=== PATIENT | female | born 1970 | race Caucasian/White ===

== ENCOUNTER 2017-11-09 11:14 | Observation (INO) | payer BC ==
--- NOTE | 2017-11-09 12:21 | RAD ---
EXAM DESCRIPTION: Chest,2 Views CLINICAL HISTORY: atypical chest and abd pain COMPARISON: August 15, 2013 FINDINGS: Cardiac silhouette is within normal limits. EKG leads project over the chest. There is no focal parenchymal or pleural disease. There is no acute osseous process visualized. IMPRESSION: No evidence of acute cardiopulmonary disease. Electronically signed by: Ilya Mcneil MD 11/09/2017 12:19 PM CDT
--- NOTE | 2017-11-09 12:24 | RAD ---
EXAM DESCRIPTION: Abdomen Flat Upright CLINICAL HISTORY: atypical chest and abd pain COMPARISON: None FINDINGS: Supine and upright images of the abdomen were submitted . Surgical clips in the right upper quadrant compatible with prior cholecystectomy. Surgical clips also noted at the level of the pelvis. Calcifications projecting at the level of the iliac crest may represent injection granulomas. Moderate amount of stools within the colon. There is no free air in the abdomen. There is no evidence of bowel obstruction. IMPRESSION: No acute abnormalities. Electronically signed by: Ilya Mcneil MD 11/09/2017 12:22 PM CDT
[2017-11-09] MEDS ORDERED: ASPIRIN TABLET 325 MG TAB PO ONE (12:27)
[2017-11-09] MEDS ORDERED: ALUM & MAG HYDROX-SIMETHICONE 30 ML, LIDOCAINE VISCOUS 2% 15 ML PO ONE ×2 (12:27)
[2017-11-09] MEDS ORDERED: ALUM & MAG HYDROX-SIMETHICONE 30 ML UD ONE (12:31)
[2017-11-09] MEDS ORDERED: LIDOCAINE HCL 2% (MOUTH-THROAT) 15 ML UD ONE (12:31)
[2017-11-09] MEDS ORDERED: SUCRALFATE 1 GM/10 ML 1 GM UD PO ONE (14:37)
[2017-11-09] MEDS ORDERED: PANTOPRAZOLE SODIUM TAB 40 MG PO ONE (14:37)
[2017-11-09] MEDS ORDERED: ENOXAPARIN SODIUM 80 MG/0.8 ML SYG SUBCU ONE (16:02)
--- NOTE | 2017-11-09 16:06 | ED.PDOC ---
History of Present Illness - General Chief Complaint: Respiratory Problem Stated Complaint: trouble breathing,chest tightness Time Seen by Provider: 11/09/17 11:18 Source: patient Exam Limitations: no limitations - History of Present Illness Initial Comments: the patient is a 47-year-old female presenting to the emergency room secondary to a burning substernal chest pain that started after she woke up this morning around 9:30 in the morning. No history of any cardiac disease. He has been fairly constantly present but does get a little worse at times. She has had some mild nausea but no vomiting. She does have some epigastric discomfort this morning that is new as well. She does have a history of lupus and possible scleroderma. She takes Plaquenil for this. She also has a history of thyroid disease. No palpitations. No shortness of breath. She does have a history of fibromyalgia. No syncope or near syncope. Chest discomfort was present 2-3 hours prior to arrival here. No significant previous episodes. She is already apparently scheduled to see a pizza driver in December for some of her reflux symptoms in the past. Timing/Duration: 1-3 hours Severity: moderate Improving Factors: nothing Worsening Factors: nothing Associated Symptoms: chest pain, loss of appetite, nausea/vomiting Allergies/Adverse Reactions: Allergies NO KNOWN ALLERGY Allergy (Verified 08/15/13 17:00) Home Medications: Ambulatory Orders Hydroxychloroquine Sulfate [Hydroxychloroquine Sulfat] 200 mg PO DAILY 11/09/17 Levothyroxine Sodium [Synthroid] 100 mcg PO DAILY 11/09/17 Lisinopril 10 mg PO DAILY 11/09/17 Pantoprazole Sodium 20 mg PO DAILY 11/09/17 Review of Systems - Review of Systems Constitutional: States: no symptoms reported EENTM: States: no symptoms reported Respiratory: States: no symptoms reported Cardiology: States: chest pain Gastrointestinal/Abdominal: States: see HPI Genitourinary: States: no symptoms reported Musculoskeletal: States: no symptoms reported Skin: States: no symptoms reported Neurological: States: anxiety Endocrine: States: no symptoms reported All other Systems: No Change from Baseline Past Medical History (General) - Patient Medical History Hx Stroke: No Hx Congestive Heart Failure: No Hx Hypertension: Yes Hx Diabetes: No - Vaccination History Hx Influenza Vaccination: No - Social History Hx Tobacco Use: Yes Family Medical History - Family History Mother Family History: Unknown Living Status: Unknown Physical Exam - Physical Exam General Appearance: Alert, Anxious, No apparent distress Eye Exam: bilateral normal Ears, Nose, Throat: hearing grossly normal, normal ENT inspection, normal pharynx, other - the patient does have some lip changes consistent with scleroderma Neck: full range of motion, supple Respiratory: lungs clear, normal breath sounds, no respiratory distress, no accessory muscle use Cardiovascular/Chest: normal peripheral pulses, regular rate, rhythm, no edema Peripheral Pulses: radial,right: 2+, radial,left: 2+, dorsalis pedis,right: 2+, dorsalis pedis,left: 2+ Gastrointestinal/Abdominal: soft, other - epigastric discomfort to palpation but no rebound or peritoneal signs. Rectal Exam: deferred Back Exam: normal inspection, no CVA tenderness, no vertebral tenderness Extremity: normal range of motion, non-tender, normal inspection, no pedal edema , normal capillary refill Neurologic: survival equipment repairer II-XII nml as tested, alert, normal mood/affect, oriented x 3 Skin Exam: normal color Comments: Vital Signs - 24 hr 11/09/17 11/09/17 11/09/17 11:20 11:30 12:14 Temperature 97.5 F L Pulse Rate [ 78 73 75 Left Brachial] Respiratory 20 16 Rate Blood Pressure 110/73 101/73 [Left Arm] O2 Sat by Pulse 96 97 Oximetry 11/09/17 11/09/17 13:00 14:00 Temperature Pulse Rate [ 73 76 Left Brachial] Respiratory 16 16 Rate Blood Pressure 101/72 99/62 [Left Arm] O2 Sat by Pulse 97 98 Oximetry Progress - Progress Progress: 11/09/17 16:07 the patient is a 47-year-old female presenting to the emergency room secondary to epigastric and substernal pain since 9:30 this morning. Chest pain is atypical and is probably most likely related to upper stomach and esophageal dysfunction due to her scleroderma. She is however at increased risk due to autoimmune disease and the plaquenil that she takes. The first 2 sets of cardiac enzymes are negative. She has received a dose of aspirin and Lovenox. She also received GI medications of a GI cocktail, Carafate and Protonix. She is feeling better at this point. As the patient is a high-risk patient she is going to be placed inpatient for continued monitoring and the longer rule out protocol. - Results/Orders Results/Orders: 11/09/17 11:30 Telemetry .CONTINUOUS 11/09/17 11:45 EKG STAT 11/09/17 12:01 URINE CULTURE W/COLONY COUNT Stat Laboratory Results - last 24 hr 11/09/17 11/09/17 11/09/17 11:31 11:40 11:40 WBC RBC Hgb Hct MCV MCH MCHC RDW Plt Count MPV Absolute Neuts (auto) Absolute Lymphs (auto) Absolute Monos (auto) Absolute Eos (auto) Absolute Basos (auto) Neutrophils % Lymphocytes % Monocytes % Eosinophils % Basophils % PT INR PTT (SP) D-Dimer, Quantitative Sodium 138 Potassium 4.1 Chloride 106 Carbon Dioxide 27 Anion Gap 9.1 L BUN 11 Creatinine 0.65 BUN/Creatinine Ratio 16.9 Random Glucose 86 Serum Osmolality 274.4 L Lactic Acid 0.8 Calcium 8.6 Magnesium 2.1 Total Bilirubin 0.7 AST 16 ALT 18 Alkaline Phosphatase 106 Creatine Kinase 30 CK-MB (CK-2) 0.7 CK-MB (CK-2) % Not Reportable Troponin I < 0.02 B-Natriuretic Peptide 11.6 Serum Total Protein 6.9 Albumin 3.8 Globulin 3.1 Albumin/Globulin Ratio 1.2 Amylase 47 Lipase 27 TSH 2.87 Urine Color Urine Appearance Urine pH Ur Specific [place] Urine Protein Urine Glucose (UA) Urine Ketones Urine Blood Urine Nitrite Urine Bilirubin Urine Urobilinogen Ur Leukocyte Esterase Urine RBC Urine WBC Ur Epithelial Cells Urine Bacteria Urine HCG, Qual Negative 11/09/17 11/09/17 11/09/17 11:40 11:40 12:01 WBC 3.6 L RBC 3.53 L Hgb 11.5 L Hct 35.6 L MCV 100.8 H MCH 32.5 H MCHC 32.3 L RDW 13.8 Plt Count 192 MPV 10.2 Absolute Neuts (auto) 1.00 L Absolute Lymphs (auto) 1.90 Absolute Monos (auto) 0.40 Absolute Eos (auto) 0.20 Absolute Basos (auto) 0.00 Neutrophils % 28.3 L Lymphocytes % 54.0 H Monocytes % 11.2 H Eosinophils % 5.9 H Basophils % 0.6 PT 9.7 INR 0.97 PTT (SP) 24.7 D-Dimer, Quantitative 0.58 H* Sodium Potassium Chloride Carbon Dioxide Anion Gap BUN Creatinine BUN/Creatinine Ratio Random Glucose Serum Osmolality Lactic Acid Calcium Magnesium Total Bilirubin AST ALT Alkaline Phosphatase Creatine Kinase CK-MB (CK-2) CK-MB (CK-2) % Troponin I B-Natriuretic Peptide Serum Total Protein Albumin Globulin Albumin/Globulin Ratio Amylase Lipase TSH Urine Color Yellow Urine Appearance Clear Urine pH 7.0 Ur Specific [place] 1.010 Urine Protein Negative Urine Glucose (UA) Negative Urine Ketones Negative Urine Blood Negative Urine Nitrite Negative Urine Bilirubin Negative Urine Urobilinogen 1.0 Ur Leukocyte Esterase Small H Urine RBC 0 Urine WBC 3-5 H Ur Epithelial Cells 5-10 Urine Bacteria Rare Urine HCG, Qual 11/09/17 15:28 WBC RBC Hgb Hct MCV MCH MCHC RDW Plt Count MPV Absolute Neuts (auto) Absolute Lymphs (auto) Absolute Monos (auto) Absolute Eos (auto) Absolute Basos (auto) Neutrophils % Lymphocytes % Monocytes % Eosinophils % Basophils % PT INR PTT (SP) D-Dimer, Quantitative Sodium Potassium Chloride Carbon Dioxide Anion Gap BUN Creatinine BUN/Creatinine Ratio Random Glucose Serum Osmolality Lactic Acid Calcium Magnesium Total Bilirubin AST ALT Alkaline Phosphatase Creatine Kinase 27 CK-MB (CK-2) 0.7 CK-MB (CK-2) % Not Reportable Troponin I < 0.02 B-Natriuretic Peptide Serum Total Protein Albumin Globulin Albumin/Globulin Ratio Amylase Lipase TSH Urine Color Urine Appearance Urine pH Ur Specific [place] Urine Protein Urine Glucose (UA) Urine Ketones Urine Blood Urine Nitrite Urine Bilirubin Urine Urobilinogen Ur Leukocyte Esterase Urine RBC Urine WBC Ur Epithelial Cells Urine Bacteria Urine HCG, Qual chest x-ray shows no acute pathology. EKG shows normal sinus rhythm at 76 bpm. Normal R-wave progression. No acute ST segment changes concerning for ischemia. Normal QT interval. Normal axis. Departure - Departure Clinical Impression: Chest pain at rest Disposition: Admit Patient Referrals: [facility] [Primary Care Provider] - 1-2 Weeks Home Medications: Ambulatory Orders Hydroxychloroquine Sulfate [Hydroxychloroquine Sulfat] 200 mg PO DAILY 11/09/17 Levothyroxine Sodium [Synthroid] 100 mcg PO DAILY 11/09/17 Lisinopril 10 mg PO DAILY 11/09/17 Pantoprazole Sodium 20 mg PO DAILY 11/09/17 Decision To Admit - Decistion To Admit Decision to Admit Reason: Medical Nature Decision to Admit Date: 11/09/17 Decision to Admit Time: 16:10
--- NOTE | 2017-11-09 16:59 | HP ---
SUPERVISING PHYSICIAN: Dom Haney M.D. CHIEF COMPLAINT: Chest pressure. HISTORY OF PRESENT ILLNESS: This is a 47 year-old female patient who earlier this morning had some chest pressure. It did not radiate down either arm or go to the back, it was just mid sternal. She had no diaphoresis. It was not worse with activity nor were there any alleviating factors. She also had some mild nausea without any vomiting. She recently was diagnosed with bronchitis by her primary care physician, Dr. Safia Zhang, and was given a Rocephin shot in office as well as a steroid and another injectable antibiotic, but was not given a prescription for antibiotics. She has a significant history of fibromyalgia, lupus, interstitial lung disease and RA. She came to the Emergency Room and in the Emergency Room her initial set of cardiac enzymes were negative. She also had a WBC of 3,.6 with hemoglobin 11.5 and hematocrit 35.6. Chemistries were basically within normal limits and lactic acid was 0.8. TSH was 2.87. Her second set of cardiac enzymes in the E. R. was also negative. Her vital signs were stable with her oxygenation at 97 to 99% on room air. Chest x-ray showed no evidence of acute cardiopulmonary disease. Abdominal x-ray showed no acute abnormalities. I was called for admission for chest pain rule out myocardial infarction. PAST MEDICAL HISTORY: 1. Hypertension. 2. Fibromyalgia. 3. Hypothyroidism. 4. Lupus. 5. Interstitial lung disease recently diagnosed. 6. Rheumatoid arthritis. 7. Scleroderma. PAST SURGICAL HISTORY: 1. section. 2. Thumb surgery. 3. Cholecystectomy. 4. Hysterectomy. OUTPATIENT MEDICATIONS: Per the EMR and awaiting verification. ALLERGIES: NO KNOWN DRUG ALLERGIES.. FAMILY HISTORY: Maternal grandmother of a myocardial infarction in her 60s. Maternal grandfather of lung cancer but he was a heavy smoker. Her mother also has interstitial lung disease. SOCIAL HISTORY: She is . She has 3 children. She lives in [place]. She quit smoking approximately 5 years ago and at that time only smoked 2 to 3 cigarettes a day. She drinks alcoholic beverages rarely. There is no history of illicit drug use. REVIEW OF SYSTEMS: GENERAL: Denies fever, fatigue or weight changes. HEENT: Negative for sinus symptoms, ear pain, vision changes or sore throat. RESPIRATORY: Positive for coughing and increased sputum production. Negative for wheezing or shortness of breath. CARDIAC: As per History of Present Illness. GASTROINTESTINAL: Positive for nausea, although she has no complaints of nausea at this time. Negative for vomiting, diarrhea or constipation. MUSCULOSKELETAL: Negative for myalgias and arthralgias. SKIN: Negative for lesions or rashes. NEUROLOGIC: Negative for dizziness, headache or seizures. GENITOURINARY: Negative for hematuria, dysuria, polyuria. PHYSICAL EXAMINATION: VITAL SIGNS: Temperature 98.2, heart rate 77, blood pressure 115/86, respiratory rate 16, O2 sat 99% on room air. GENERAL: This is a 47 year-old female patient who is lying in her hospital bed. She is in no acute distress. HEENT: Normocephalic and atraumatic. Pupils are equal and reactive. Oropharynx is clear. NECK: Supple without mass. RESPIRATORY: Coarse breath sounds throughout, otherwise no wheezing noted. CHEST: There is equal rise and fall of the chest with inspiration and expiration. CARDIOVASCULAR: Regular rate and rhythm. Sinus rhythm on the cardiac specialist. GASTROINTESTINAL: Abdomen is soft, nondistended, non-tender. Bowel sounds are positive. EXTREMITIES: No cyanosis, clubbing or edema. There is discoloration to lower extremities, most likely due to scleroderma. NEUROLOGIC: She is awake, alert and oriented times three. LABORATORY: Labs and films are as per the history of present illness. ASSESSMENT: 1. Chest pain rule out myocardial infarction with 2 sets of negative cardiac enzymes and no EKG changes. 2. Bronchitis recently diagnosed several days ago when seen in her primary care physician's office. She was given an injection of Rocephin, steroids and another injectable antibiotic and was not sent home on any oral antibiotics. 3. Interstitial lung disease newly diagnosed. 4. Fibromyalgia. 5. Lupus. 6. Rheumatoid arthritis.. 7. Hypothyroidism. 8. Hypertension. 9. Scleroderma. PLAN: We will place the patient in Observation. I have initiated the chest pain protocol. I have also ordered some azithromycin for her bronchitis. I placed her on a PPI for ulcer prophylaxis and Lovenox for DVT prophylaxis. Will monitor her serial cardiac enzymes closely and hopefully she can be discharged in the morning on some azithromycin and have close followup with her physician, Dr. Safia Zhang, for cardiac workup especially due to her grandmother dying in her 60s from an LA, as well as her immunocompromised status. Will monitor her closely and follow as needed. Dr. Haney is the collaborating physician available for consultation. #[id number] [facility]
[2017-11-09] MEDS ORDERED: ACETAMINOPHEN 325 MG TAB PO PRN (17:23)
[2017-11-09] MEDS ORDERED: MORPHINE SULFATE INJ 10 MG/ML VIAL IV PRN (17:23)
[2017-11-09] MEDS ORDERED: SODIUM CHLORIDE 0.9% (FLUSH) 10 ML SYG IV PRN (17:23)
[2017-11-09] MEDS ORDERED: NITROGLYCERIN 0.4 MG 25 EA TAB SL PRN (17:23)
[2017-11-09] MEDS ORDERED: IV SET AND CAP CHANGE INJ INJ SCH (17:30)
[2017-11-09] MEDS ORDERED: AZITHROMYCIN 250 MG TAB PO ONE (19:54)
[2017-11-09] MEDS: SODIUM CHLORIDE 0.9% (FLUSH) 10 ML SYG IV SCH (20:26)
[2017-11-09] MEDS: [UNRECOGNIZED DRUG - OTHER] PO SCH (20:27)
[2017-11-09] MEDS: MYCOPHENOLATE MOFETIL 1000 MG PO SCH (20:27)
[2017-11-10] MEDS ORDERED: LEVOTHYROXINE SODIUM 0.1 MG TAB PO SCH (06:30)
[2017-11-10] MEDS ORDERED: PANTOPRAZOLE SODIUM IV 40 MG VIAL IV SCH (06:30)
[2017-11-10] MEDS ORDERED: ASPIRIN TABLET 325 MG TAB PO SCH (09:00)
[2017-11-10] MEDS ORDERED: AZITHROMYCIN 250 MG TAB PO SCH (09:00)
[2017-11-10] MEDS ORDERED: LISINOPRIL 10 MG TAB PO SCH (09:00)
[2017-11-10] MEDS: ENOXAPARIN SODIUM 40 MG/0.4 ML SYG SUBCU SCH ×2 (09:05→09:08)
[2017-11-10] MEDS: MYCOPHENOLATE MOFETIL 1000 MG PO SCH (09:06)
[2017-11-10] MEDS: [UNRECOGNIZED DRUG - OTHER] PO SCH (09:06)
[2017-11-10] MEDS: SODIUM CHLORIDE 0.9% (FLUSH) 10 ML SYG IV SCH (09:06)
[2017-11-10 11:44] VITALS: BP 92/63; TEMP 98; O2SAT 97
--- NOTE | 2017-11-10 19:28 | DS ---
SUPERVISING PHYSICIAN: Dom Haney M.D. DISCHARGE DIAGNOSIS: 1. Chest pain rule out myocardial infarction. Her serial cardiac enzymes were all negative and she had no EKG changes with no further complaints of chest pain after admission. 2. Bronchitis recently diagnosed several days ago when seen in her primary care physician's office. She was given an injection of Rocephin, steroids and another injectable antibiotic and was not sent home on any oral antibiotics. 3. Interstitial lung disease newly diagnosed. 4. Fibromyalgia. 5. Lupus. 6. Rheumatoid arthritis.. 7. Hypothyroidism. 8. Hypertension. 9. Scleroderma. HISTORY OF PRESENT ILLNESS: This is a 47 year-old female patient who on the day of admission had some chest pressure. It did not radiate down either arm or go to her back. It was just mid sternal. She had no diaphoresis. It was not worse with activity nor were there any alleviating factors. She also had some mild nausea without any vomiting. She was recently diagnosed with bronchitis by her primary care physician, Dr. Safia Zhang, and was given a Rocephin shot as well as a steroid and another injectable antibiotic, but was not given a prescription for oral antibiotics. She has had a significant history of fibromyalgia, lupus, interstitial lung disease, RA and scleroderma. Her initial cardiac enzymes as well as subsequent cardiac enzymes were negative. Her white count was 3.6 with hemoglobin 11.5 and hematocrit 35.6. Chemistries were basically within normal limits and lactic acid was 0.8. TSH was 2.87. Her vital signs were stable and her O2 sats were in the upper 90s. Chest x-ray showed no cardiopulmonary problems. Abdominal x-ray showed no acute abnormalities. She was placed in Observation in the hospital and chest pain guideline were initiated. HOSPITAL COURSE: Subsequent cardiac enzymes were all negative. She had no further complaints of chest pain and she had been started on azithromycin for her bronchitis as well as her home medications. She will be discharged home in stable condition. DISCHARGE PLAN: The patient will be discharged home in stable condition. She is to followup with her primary care physician, Dr. Safia Zhang, as soon as possible. She did have a grandmother that in her 60s from an LA, so she would most likely benefit from a cardiac workup. Her home medications have been resumed and I have also ordered her 4 additional days of azithromycin as well as some Nitroglycerin. She is to resume her previous activity as well as her previous diet. She is to return to the hospital or call Dr. Zhang's office for any further problems or complications. DISCHARGE MEDICATIONS: 1. Pantoprazole. 2. Lisinopril. 3. Levothyroxine. 4. Hydroxychloroquine. 5. Mycophenolate. 6. Azithromycin. 7. Nitroglycerin. #[id number] [facility]
[2017-11-11] MEDS ORDERED: LEVOTHYROXINE SODIUM 0.1 MG TAB PO SCH (06:30)
== END 2017-11-10 11:35 | disposition home or self-care (01) ==
LOC: ER 11:14 → MS 16:57
PROVIDERS: ADMIT Nurse Practitioner Acute Care; ATTEND Nurse Practitioner Acute Care
DX: R07.89 Other chest pain (principal); J40 Bronchitis, not specified as acute or chronic; J84.9 Interstitial pulmonary disease, unspecified; M79.7 Fibromyalgia; M32.9 Systemic lupus erythematosus, unspecified; M06.9 Rheumatoid arthritis, unspecified; E03.9 Hypothyroidism, unspecified; I10 Essential (primary) hypertension; M34.9 Systemic sclerosis, unspecified; Z79.899 Other long term (current) drug therapy; Z87.891 Personal history of nicotine dependence; Z90.49 Acquired absence of other specified parts of digestive tract; Z82.49 Family history of ischemic heart disease and other diseases of the circulatory system; Z80.1 Family history of malignant neoplasm of trachea, bronchus and lung
CPT/HCPCS: 96374; Q0144 ×2; J1650; 85379; 82553 ×4; 80053 ×2; 87086; 81025; 80061; 36415 ×3; 82150; 81001; 85025 ×2; 82550 ×4; 83690; 83735; 85730; 85610; 84443; 84484 ×4; 83880; 83605; 74019; 71046; 94760 ×3; 99285; 93005 ×3; G0378; 96372